=== PATIENT | male | born 1990 ===

== ENCOUNTER 2017-06-30 19:49 | Emergency (ER) | payer OTHER, SELFPAY ==
[2017-06-30 19:49] VITALS: BMI 26.3
[2017-06-30 20:35] VITALS: BP 121/67; PULSE 64; RESP 16; TEMP 98; O2SAT 99
[2017-06-30] MEDS ORDERED: Sodium Chloride 0.9% 1,000 ML IV STA (22:22)
[2017-06-30 22:46] LABS: BASO % 0.7 % (0.0-2.0); EOS # 0.1 K/uL (0.0-0.7); EOS % 1.1 % (0.0-4.0); HEMOGLOBIN 15.5 g/dL (12.0-18.0); LYMPH # 3.1 K/uL (1.0-4.3); LYMPH % 40.9 % (20.0-40.0); MEAN CELL VOLUME 90.7 fl (80.0-94.0); MEAN CORPUSCULAR HEMOGLOBIN 30.7 pg (27.0-31.0); MEAN CORPUSCULAR HGB CONC 33.8 g/dL (33.0-37.0); MONO # 0.5 K/uL (0.0-0.8); NEUT # 3.8 K/uL (1.8-7.0); NEUT % 50.3 % (50.0-75.0); NRBC % 0.1 % (0.0-0.0); RBC 5.05 Mil/uL (4.40-5.90); RED CELL DISTRIBUTION WIDTH 12.6 % (11.5-14.5); WHITE BLOOD COUNT 7.6 K/uL (4.8-10.8)
--- NOTE | 2017-06-30 22:53 | ED PDOC ---
HPI: Headache Time Seen by Provider: 06/30/17 22:15 Chief Complaint (Nursing): Headache Chief Complaint (Provider): Headache and left flank pain History Per: Patient History/Exam Limitations: no limitations Onset/Duration Of Symptoms: Days (x1 month), Intermittent Episodes (headache) Current Symptoms Are (Timing): Still Present Pain Scale Rating Of: 8 Quality: "Pain" Associated Symptoms: Nausea Additional Complaint(s): Elian Alcala is a 27 year old male, with a past medical history of kidney stones, who presents to the emergency department complaining of an intermittent headache onset for x1 month and left flank pain for x1 day. Patient reports the headache as an 8/10 associated with nausea, and has been worsening since onset. He decided to come today because in addition to the headache he has left flank pain and is concerned due to history of kidney stones. He denies any vomiting, diarrhea, fever, chills, cough or shortness of breath. No further medical complaints. PMD: None provided. Past Medical History Reviewed: Historical Data, Nursing Documentation, Vital Signs Vital Signs: Last Vital Signs Temp 98.0 F 06/30/17 20:32 Pulse 64 06/30/17 20:32 Resp 16 06/30/17 20:32 BP 121/67 06/30/17 20:32 Pulse Ox 99 06/30/17 20:32 - Medical History PMH: No Chronic Diseases - Surgical History Surgical History: No Surg Hx - Family History Family History: States: Unknown Family Hx - Social History Current smoker - smoking cessation education provided: No Alcohol: Occasional Drugs: Denies - Home Medications Home Medications: Ambulatory Orders Medication Instructions Recorded Naproxen [Naprosyn] 500 mg PO BID PRN #30 tab 02/03/16 Tamsulosin [Flomax] 0.4 mg PO DAILY #30 cap 02/03/16 - Allergies Allergies/Adverse Reactions: Allergies Allergy/AdvReac Type Severity Reaction Status Date / Time No Known Allergies Allergy Verified 02/03/16 16:59 Review of Systems ROS Statement: Except As Marked, All Systems Reviewed And Found Negative Constitutional: Negative for: Fever, Chills Respiratory: Negative for: Cough, Shortness of Breath Gastrointestinal: Negative for: Vomiting, Diarrhea Musculoskeletal: Positive for: Other (left flank pain) Neurological: Positive for: Headache (intermittent) Physical Exam - Reviewed Nursing Documentation Reviewed: Yes Vital Signs Reviewed: Yes - Physical Exam Appears: Positive for: Well, Non-toxic, No Acute Distress Head Exam: Positive for: ATRAUMATIC, NORMAL INSPECTION, NORMOCEPHALIC Skin: Positive for: Normal Color, Warm, Dry Eye Exam: Positive for: Normal appearance, EOMI, PERRL Neck: Positive for: Painless ROM, Supple Cardiovascular/Chest: Positive for: Regular Rate, Rhythm. Negative for: Murmur Respiratory: Positive for: Normal Breath Sounds. Negative for: Respiratory Distress Gastrointestinal/Abdominal: Positive for: Normal Exam, Soft. Negative for: Tenderness Back: Positive for: Normal Inspection. Negative for: L CVA Tenderness, R CVA Tenderness, Vertebral Tenderness Extremity: Positive for: Normal ROM. Negative for: Tenderness, Deformity, Swelling Neurologic/Psych: Positive for: Alert, Oriented. Negative for: Motor/Sensory Deficits - Laboratory Results Result Diagrams: 06/30/17 22:40 06/30/17 22:40 - ECG O2 Sat by Pulse Oximetry: 99 (RA) Pulse Ox Interpretation: Normal Medical Decision Making Medical Decision Making: Initial Impression: 27 y/o male with headache and left flank pain in setting of known kidney stones. Initial Plan: --Abd & Pelvis w/o contrast [CT] --Head w/o contrast [CT] --BMP --Urine dipstick --CBC w/ differential --Sodium Chloride 1,000 ml IV 1,000 mls/hr --Toradol 30 mg IV --Urinalysis --Reevaluation 00:16 --EXAM: CT Head Without Intravenous Contrast CLINICAL HISTORY: 27 years old, male; Pain; Headache; Headache not specified TECHNIQUE: Axial computed tomography images of the head/brain without intravenous contrast. All CT scans at this facility use one or more dose reduction techniques, viz.: automated exposure control; ma/kV adjustment per patient size (including targeted exams where dose is matched to indication; i.e. head); or iterative reconstruction technique. Coronal and sagittal reformatted images were created and reviewed. COMPARISON: No relevant prior studies available. FINDINGS: Brain: No intracranial hemorrhage. No mass. No definite edema. Ventricles: No hydrocephalus. Bones/joints: No acute fracture. Soft tissues: Unremarkable. Sinuses: Scattered mild mucosal thickening of ethmoid, frontal sinuses. Mastoid air cells: No mastoid effusion. Orbits: Unremarkable as visualized. IMPRESSION: 1. No definite acute intracranial abnormality. 2. Incidental/non-acute findings are described above 00:19 EXAM: CT Abdomen and Pelvis Without Intravenous Contrast CLINICAL HISTORY: 27 years old, male; Pain; Abdominal pain; Generalized; Patient HX: HX of renal stones; Additional info: Renal colic TECHNIQUE: Axial computed tomography images of the abdomen and pelvis without intravenous contrast. All CT scans at this facility use one or more dose reduction techniques, viz.: automated exposure control; ma/kV adjustment per patient size (including targeted exams where dose is matched to indication; i.e. head); or iterative reconstruction technique. Coronal and sagittal reformatted images were created and reviewed. COMPARISON: CT - ABD PELVIS W/O PO OR IV CONT 2016-02-03 19:48 FINDINGS: Lower thorax: No acute findings. ABDOMEN: Liver: Unremarkable. Gallbladder and bile ducts: No calcified stones. No ductal dilation. Pancreas: Unremarkable. No ductal dilation. Spleen: No splenomegaly. Adrenals: No mass. Kidneys and ureters: Several small renal calculi. No hydronephrosis. Stomach and bowel: No definite mural thickening. No obstruction. Appendix: Normal caliber. No inflammation. PELVIS: Bladder: Unremarkable. No stones. Reproductive: Unremarkable as visualized. ABDOMEN and PELVIS: Intraperitoneal space: No significant fluid collection. No free air. Bones/joints: No acute fracture. Soft tissues: Unremarkable. Vasculature: Unremarkable. No aneurysm. Lymph nodes: No pathologically enlarged lymph nodes. IMPRESSION: 1. Nonobstructing renal calculi. 2. Incidental/non-acute findings are described above. 23:00 Patient reports improvement in symptoms Labs reviewed show no clinically sig abnormalities Patient will f/u with [facility] and will take Ibuprofen prn pain Dx Renal Calculus, Headache Improved Scribe Attestation: Documented by Carlton Cleary, acting as a scribe for Parker Steel MD Provider Scribe Attestation: All medical record entries made by the Scribe were at my direction and personally dictated by me. I have reviewed the chart and agree that the record accurately reflects my personal performance of the history, physical exam, medical decision making, and the department course for this patient. I have also personally directed, reviewed, and agree with the discharge instructions and disposition. Disposition - Clinical Impression Clinical Impression: Headache, Renal calculi - Disposition Disposition: Routine/Home Disposition Time: 23:00 Condition: IMPROVED Instructions: Tension Headache, Kidney Stones in Adults Forms: [facility] (Romanian) Print Language: MAORI
[2017-06-30 22:57] LABS: BLOOD UREA NITROGEN 17 mg/dl (9-20); CALCIUM 9.4 mg/dL (8.4-10.2); GFR AFRICAN-AMERICAN > 60; GFR NON-AFRICAN AMERICAN > 60
[2017-06-30 23:27] LABS: URINE BILIRUBIN NEGATIVE (NEGATIVE); URINE BLOOD NEGATIVE (NEGATIVE); URINE CLARITY CLEAR (Clear); URINE COLOR YELLOW (YELLOW); URINE GLUCOSE (UA) NEG (Normal); URINE LEUKOCYTE ESTERASE NEG Leu/uL (Negative); URINE PROTEIN NEGATIVE (NEGATIVE); URINE UROBILINOGEN 0.2-1.0 mg/dL (0.2-1.0)
--- NOTE | 2017-07-01 00:16 | CT ---
EXAM: CT Head Without Intravenous Contrast CLINICAL HISTORY: 27 years old, male; Pain; Headache; Headache not specified TECHNIQUE: Axial computed tomography images of the head/brain without intravenous contrast. All CT scans at this facility use one or more dose reduction techniques, viz.: automated exposure control; ma/kV adjustment per patient size (including targeted exams where dose is matched to indication; i.e. head); or iterative reconstruction technique. Coronal and sagittal reformatted images were created and reviewed. COMPARISON: No relevant prior studies available. FINDINGS: Brain: No intracranial hemorrhage. No mass. No definite edema. Ventricles: No hydrocephalus. Bones/joints: No acute fracture. Soft tissues: Unremarkable. Sinuses: Scattered mild mucosal thickening of ethmoid, frontal sinuses. Mastoid air cells: No mastoid effusion. Orbits: Unremarkable as visualized. IMPRESSION: 1. No definite acute intracranial abnormality. 2. Incidental/non-acute findings are described above.
--- NOTE | 2017-07-01 00:20 | CT ---
EXAM: CT Abdomen and Pelvis Without Intravenous Contrast CLINICAL HISTORY: 27 years old, male; Pain; Abdominal pain; Generalized; Patient HX: HX of renal stones; Additional info: Renal colic TECHNIQUE: Axial computed tomography images of the abdomen and pelvis without intravenous contrast. All CT scans at this facility use one or more dose reduction techniques, viz.: automated exposure control; ma/kV adjustment per patient size (including targeted exams where dose is matched to indication; i.e. head); or iterative reconstruction technique. Coronal and sagittal reformatted images were created and reviewed. COMPARISON: CT - ABD PELVIS W/O PO OR IV CONT 2016-02-03 19:48 FINDINGS: Lower thorax: No acute findings. ABDOMEN: Liver: Unremarkable. Gallbladder and bile ducts: No calcified stones. No ductal dilation. Pancreas: Unremarkable. No ductal dilation. Spleen: No splenomegaly. Adrenals: No mass. Kidneys and ureters: Several small renal calculi. No hydronephrosis. Stomach and bowel: No definite mural thickening. No obstruction. Appendix: Normal caliber. No inflammation. PELVIS: Bladder: Unremarkable. No stones. Reproductive: Unremarkable as visualized. ABDOMEN and PELVIS: Intraperitoneal space: No significant fluid collection. No free air. Bones/joints: No acute fracture. Soft tissues: Unremarkable. Vasculature: Unremarkable. No aneurysm. Lymph nodes: No pathologically enlarged lymph nodes. IMPRESSION: 1. Nonobstructing renal calculi. 2. Incidental/non-acute findings are described above.
== END 2017-07-01 00:50 | disposition home or self-care (01) ==
LOC: H.ER 19:49
DX: R51 Headache (principal); N20.0 Calculus of kidney; Z87.442 Personal history of urinary calculi
CPT/HCPCS: 70450; 74176; 80048; 81003; 85025; 96360; 99283; J1885; J7040

== ENCOUNTER 2017-08-13 06:40 | Emergency (ER) | payer OTHER ==
[2017-08-13 06:40] VITALS: BMI 26.3
[2017-08-13 06:56] VITALS: BP 148/88; PULSE 88; RESP 16; TEMP 98.2; O2SAT 98
--- NOTE | 2017-08-13 07:13 | ED PDOC ---
HPI: Eye Injury/Pain Time Seen by Provider: 08/13/17 07:04 Chief Complaint (Nursing): ENT Problem History Per: Patient Onset/Duration Of Symptoms: Days (3) Current Symptoms Are (Timing): Still Present Severity: Mild Pain Scale Rating Of: 2 Associated Symptoms: FB Sensation. denies: Decreased Vision, Swelling, Discharge From Eye Additional Complaint(s): Redness and irritation left eye x 3 days. No injury. No discharge. No chasnge in viision Past Medical History Vital Signs: Last Vital Signs Temp 98.2 F 08/13/17 06:53 Pulse 88 08/13/17 06:53 Resp 16 08/13/17 06:53 BP 148/88 08/13/17 06:53 Pulse Ox 98 08/13/17 06:53 - Medical History PMH: No Chronic Diseases - Family History Family History: States: Unknown Family Hx - Home Medications Home Medications: Ambulatory Orders Medication Instructions Recorded Naproxen [Naprosyn] 500 mg PO BID PRN #30 tab 02/03/16 Tamsulosin [Flomax] 0.4 mg PO DAILY #30 cap 02/03/16 Tobramycin 0.3% [Tobramycin 5 Ml] 1 drop OP TID #1 bottle 08/13/17 - Allergies Allergies/Adverse Reactions: Allergies Allergy/AdvReac Type Severity Reaction Status Date / Time No Known Allergies Allergy Verified 02/03/16 16:59 Review of Systems Constitutional: Negative for: Fever Eyes: Positive for: Conjunctivae Inflammation, Redness. Negative for: Pain, Vision Change Physical Exam - Physical Exam Appears: Positive for: Non-toxic, No Acute Distress Skin: Positive for: Normal Color, Warm, DRY Eye Exam: Positive for: EOMI, PERRL, Conjunctival injection, Other ( Conjunctivcal and scleral hemorrhage. Fundi no hemorrhage. No uptake on flourescein staining) - ECG O2 Sat by Pulse Oximetry: 98 Disposition - Clinical Impression Clinical Impression: Subconjunctival hemorrhage - Patient ED Disposition Is Patient to be Admitted: No Counseled Patient/Family Regarding: Diagnosis, Need For Followup, Rx Given - Disposition Referrals: Nando Arora MD [Staff Provider] - Disposition: Routine/Home Disposition Time: 07:13 Condition: FAIR Prescriptions: Tobramycin 0.3% [Tobramycin 5 Ml] 1 drop OP TID #1 bottle Instructions: Subconjunctival Hemorrhage
== END 2017-08-13 07:34 | disposition home or self-care (01) ==
LOC: H.ER 06:40
DX: H11.31 Conjunctival hemorrhage, right eye (principal)

== ENCOUNTER 2017-09-21 12:36 | Emergency (ER) | payer OTHER, SELFPAY ==
[2017-09-21 12:36] VITALS: BMI 26.3
[2017-09-21] MEDS ORDERED: Sodium Chloride 0.9% 1,000 ML IV STA (13:39)
--- NOTE | 2017-09-21 14:12 | ED PDOC ---
HPI: Headache Time Seen by Provider: 09/21/17 13:08 Chief Complaint (Nursing): Headache Chief Complaint (Provider): Headache History Per: Patient, [employer] ([id number]) Onset/Duration Of Symptoms: Hrs (this morning) Current Symptoms Are (Timing): Still Present Additional Complaint(s): 27 year old male presents to the ED complaining of gradual onset headache throughout his entire head that began when he woke up this morning. Patient states he has been taking advil without relief, and is also suffering from nausea. He notes having similar symptoms in the past, being seen here three months ago but discharged with normal head CTs. Denies head injury, fever, numbness, tingling, and vomiting. PMD: none provided Past Medical History Reviewed: Historical Data, Nursing Documentation, Vital Signs Vital Signs: Last Vital Signs Temp 98.1 F 09/21/17 12:53 Pulse 64 09/21/17 12:53 Resp 18 09/21/17 12:53 BP 131/71 09/21/17 12:53 Pulse Ox 99 09/21/17 12:53 - Medical History PMH: No Chronic Diseases - Surgical History Surgical History: No Surg Hx - Family History Family History: States: Unknown Family Hx - Social History Current smoker - smoking cessation education provided: No Alcohol: None Drugs: Denies - Home Medications Home Medications: Ambulatory Orders Medication Instructions Recorded Naproxen [Naprosyn] 500 mg PO BID PRN #30 tab 02/03/16 Tamsulosin [Flomax] 0.4 mg PO DAILY #30 cap 02/03/16 Tobramycin 0.3% [Tobramycin 5 Ml] 1 drop OP TID #1 bottle 08/13/17 Metoclopramide [Reglan] 10 mg PO TID PRN #10 tab 09/21/17 Naproxen [Naprosyn] 500 mg PO BID PRN #10 tab 09/21/17 - Allergies Allergies/Adverse Reactions: Allergies Allergy/AdvReac Type Severity Reaction Status Date / Time No Known Allergies Allergy Verified 02/03/16 16:59 Review of Systems ROS Statement: Except As Marked, All Systems Reviewed And Found Negative Constitutional: Negative for: Fever, Other (head injury) Gastrointestinal: Positive for: Nausea. Negative for: Vomiting Neurological: Positive for: Headache (gradual onset throughout entire head). Negative for: Numbness (or tingling) Physical Exam - Reviewed Nursing Documentation Reviewed: Yes Vital Signs Reviewed: Yes - Physical Exam Appears: Positive for: No Acute Distress Head Exam: Positive for: ATRAUMATIC, NORMOCEPHALIC Skin: Positive for: Normal Color, Warm, Dry Eye Exam: Positive for: Normal appearance ENT: Positive for: Normal ENT Inspection Neck: Positive for: Normal, Painless ROM, Supple Cardiovascular/Chest: Positive for: Regular Rate, Rhythm. Negative for: Murmur Respiratory: Positive for: Normal Breath Sounds. Negative for: Accessory Muscle Use, Respiratory Distress Gastrointestinal/Abdominal: Positive for: Normal Exam, Soft. Negative for: Tenderness Back: Positive for: Normal Inspection. Negative for: L CVA Tenderness, R CVA Tenderness, Vertebral Tenderness Extremity: Positive for: Normal ROM Neurologic/Psych: Positive for: Alert, Oriented (x3). Negative for: Motor/ Sensory Deficits - Laboratory Results Result Diagrams: 09/21/17 14:20 09/21/17 14:20 - ECG O2 Sat by Pulse Oximetry: 99 (RA) Pulse Ox Interpretation: Normal - Progress ED Course And Treament: On re-evaluation, pt. reports complete relief of headache. Denies abdominal pain , fever. Medical Decision Making Medical Decision Making: Initial Impression: tension headache Time: 13:19 Initial Plan: --CMP --CBC with differntial --Sodium chloride 0.9% 1000ml IV --Reglan 10mg IVPB --Toradol 30mg IVP Scribe Attestation: Documented by Jil Salter, acting as a scribe for Dakota Mcclure PA-C. Provider Scribe Attestation: All medical entries made by the Scribe were at my direction and personally dictated by me. I have reviewed the chart and agree that the record accurately reflects my personal performance of the history, physical exam, medical decision making, and the department course for this patient. I have also personally directed, reviewed, and agree with the discharge instructions and disposition. Disposition - Clinical Impression Clinical Impression: Acute headache - Patient ED Disposition Is Patient to be Admitted: No - Disposition Referrals: [facility] [Outside] [facility] [Outside] Disposition: Routine/Home Disposition Time: 16:00 Condition: IMPROVED Additional Instructions: Follow up with PMD for further evaluation. Return to ED immediately if symptoms worsen. Prescriptions: Metoclopramide [Reglan] 10 mg PO TID PRN #10 tab PRN Reason: nausea or headache Naproxen [Naprosyn] 500 mg PO BID PRN #10 tab PRN Reason: Pain Instructions: Acute Headache (ED) Print Language: HEBREW
[2017-09-21 14:45] LABS: BASO % 0.3 % (0.0-2.0); EOS # 0.1 K/uL (0.0-0.7); EOS % 1.2 % (0.0-4.0); HEMOGLOBIN 15.4 g/dL (12.0-18.0); LYMPH # 1.1 K/uL (1.0-4.3); LYMPH % 15.6 % (20.0-40.0); MEAN CELL VOLUME 90.5 fl (80.0-94.0); MEAN CORPUSCULAR HEMOGLOBIN 30.1 pg (27.0-31.0); MEAN CORPUSCULAR HGB CONC 33.3 g/dL (33.0-37.0); MEAN PLATELET VOLUME 9.6 fl (7.2-11.7); MONO # 0.3 K/uL (0.0-0.8); NEUT # 5.4 K/uL (1.8-7.0); NEUT % 77.9 % (50.0-75.0); RBC 5.12 Mil/uL (4.40-5.90); RED CELL DISTRIBUTION WIDTH 12.6 % (11.5-14.5)
[2017-09-21 15:05] LABS: ALB/GLOB RATIO 1.5 (1.0-2.1); ALBUMIN 4.6 g/dL (3.5-5.0); ALT/SGPT 38 U/L (21-72); AST/SGOT 37 U/L (17-59); BLOOD UREA NITROGEN 21 mg/dl (9-20); CALCIUM 9.9 mg/dL (8.4-10.2); GFR AFRICAN-AMERICAN > 60; GFR NON-AFRICAN AMERICAN > 60
[2017-09-21 17:22] VITALS: BP 128/72; PULSE 74; RESP 16; TEMP 98.2
[2017-09-21 19:15] VITALS: O2SAT 99
== END 2017-09-21 16:38 | disposition home or self-care (01) ==
LOC: H.ER 12:36
DX: G44.209 Tension-type headache, unspecified, not intractable (principal)
CPT/HCPCS: 80053; 85025; 96374; 99283; J1885; J2765; J7030